=== PATIENT | male | born 1980 | race Caucasian/White ===

== ENCOUNTER 2016-09-17 03:12 | Emergency (ER) | payer OTHER ==
[~2016-09-17] VITALS: Ht 188 cm; Wt 79.5 kg
[~2016-09-17 03:12] MED LIST: CLIN-78 PO; NAPR500T PO; suboxone
[2016-09-17 03:23] VITALS: BP 166/88; PULSE 110; RESP 16; O2SAT 98
== END 2016-09-17 04:43 | disposition left against medical advice (07) ==
LOC: SED 03:12
DX: L02.415 Cutaneous abscess of right lower limb (principal)

== ENCOUNTER 2016-09-19 09:33 | Observation (INO) | payer OTHER ==
[~2016-09-19] VITALS: Ht 188 cm; Wt 76.6 kg
[2016-09-19 09:39] VITALS: BP 141/84; PULSE 93; RESP 18; O2SAT 99
--- NOTE | 2016-09-19 11:11 | ED.REPORT ---
HPI-Rash / Abscess Date of Service September 19, 2016 ED Provider: Augustina Estrada MD History of Present Illness: 35-year-old male here for abscess and saline and some right lower extremity. Symptoms started 1 week ago and then worsening. 2 days ago he went to the urgent care and had it lanced. He did not start his antibiotics, clindamycin and Bactrim, until the next day which was yesterday. He has taken a few doses of his antibiotics as scheduled and he is unsure if the erythema has gone down. He is able to walk on it now he believes the swelling has gone down a little unsure about the erythema. It is draining and he is expelling "cups" of purulent drainage. He also has an abscess behind his left knee, on his right foot dorsal aspect, on his left taylor. Cellulitis spreads from his right toes up to mid way up his right femur. He is a IV drug user, injected in places of abscess. Last use last night. Nursing Notes Stated Complaint: ABSCESS Chief Complaint: Skin Rash/Abscess Nursing Notes Reviewed: Yes Allergies: Coded Allergies: Penicillins (Verified Allergy, Intermediate, Rash, 09/19/16) A CHILD No Active Prescriptions or Reported Meds General Time Seen by MD: 10:57 Chief Complaint Abscess, Red area Hx Obtained From: Patient Arrived By: Walk-in Onset Occurred: 1 week ago Context of Onset: Other (drug use) Symptom Duration: Constant Location: : Lower extremity Severity: Current: Moderate Severity: Maximum: Severe Associated with: Reports Red streaking, Denies Abdominal pain, Denies Fever, Denies Headache Pertinent Negative: Pt denies other symptoms Recent Healthcare: Recent doctor visit Similar Sx Previous: Yes Past Medical History Past Medical History Notes: IV drug use, abscesses Past Medical History Opioid abuse Past Surgical History none reported. Smoking History Current Every Day Smoker Social History Alcohol Use: "Social" Drug Use: IV drugs, Meth, THC Other Social History: Good social support, Lives with children, Local resident Occupation lives with girlfriend, no work or school Ambulatory Status Independent Review of Systems Review of Systems Note: RLE swelling/erythema, unsure if erythema has gone down since starting abx Basic Review of Systems Endocrine: No cold intolerance, No heat intolerance, No weight gain, No weight loss Neurologic: NL mental status, No weakness, No numbness Psychiatric: Normal thought content Constitutional: Denies: Chills, Fatigue, Fever Respiratory: Denies: Dyspnea on exertion, Non-productive cough Cardiovascular: Denies: Chest pain GI: Denies: Abdominal pain, Nausea, Vomiting Musculoskeletal: Reports: Extremity pain, Extremity swelling Complete sys rev & neg: except as marked. Psychiatric: Denies: Agitation, Anxiety, Change mental status Physical Exam Initial Vital Signs Vital Signs (First) Date Time Temp Pulse Resp B/P Pulse Ox O2 Delivery O2 Flow Rate FiO2 09/19/16 09:39 36.1 93 18 141/84 99 Room Air Initial VS: Reviewed, Vital signs normal Head / Eyes: Atraumatic, Normocephalic, PERRL ENT: Mucous membranes moist, Conjunctiva normal, No scleral icterus Respiratory: Breath sounds normal, Clear to auscultation, No respiratory distress Cardiovascular: Regular rate & rhythm, Intact distal pulses Neurologic: Alert, Oriented, Nonfocal Psychiatric: Mood/affect normal, Behavior normal, Normal thought content General/Constitutional: Awake, Alert, Well appearing Rash / Lesion Notes: LLE: open and drainging abscess to posterior L knee, small amt of surrounding erythema. RLE: DOrsal foot with approx 4cm area of erythema/swelling/fluctuance Large area of surrounding erythema. Foot obviously swollen. Erythema extends up calf, splotchy, mainly posterior calf. Another previously lanced abscess Posterior R knee with minimal palpable induration but large area of surrounding erythema, very tender, draining purlent drainage. Surrounding erythema extensive extending to upper inner thigh. Rash / Lesion Location: Positive: Leg L, Leg R Cardiovascular: Heart rate NL, Regular rhythm, Heart sounds NL, Cap refill not delayed, Peripheral circulation NL Heart Sounds / Murmur: Positive: Systolic murmur present.. (III/) Lower Ext Edema: Positive: Pitting, Right 2+ Interpretation & Diagnostics Lab Results Interpretation Result Diagram: 09/19/16 1200 09/19/16 1200 Test 09/19/16 12:00 White Blood Count 15.9th/mm3 (3.8-10.1) Red Blood Count 4.18mil/mm3 (4.40-5.80) Hemoglobin 12.6g/dL (13.8-17.2) Hematocrit 35.4% (41.0-50.0) Mean Corpuscular Volume 84.7fL (81-100) Mean Corpuscular Hemoglobin 30.1pg (27.0-35.0) Mean Corpuscular Hemoglobin Concent 35.6% (32.0-37.0) Red Cell Distribution Width 12.2% (12.3-15.4) Platelet Count 488bil/L (150-400) Neutrophils (%) (Auto) 80% (40-74) Lymphocytes (%) (Auto) 14% (14-46) Monocytes (%) (Auto) 5% (4-12) Eosinophils (%) (Auto) 1% (0-5) Basophils (%) (Auto) 0% (0-3) Sodium Level 133mEq/L (134-144) Potassium Level 3.6mEq/L (3.5-5.2) Chloride Level 93mEq/L (97-108) Carbon Dioxide Level 24mmol/L (18-29) Blood Urea Nitrogen 13mg/dL (6-20) Creatinine 0.78mg/dL (0.76-1.27) Estimat Glomerular Filtration Rate 121mL/min (>59) Glucose Level 127mg/dL (60-99) Calcium Level 9.3mg/dL (8.5-10.1) Total Bilirubin 0.4mg/dL (0.0-1.2) Aspartate Amino Transf (AST/SGOT) 49U/L (0-50) Alanine Aminotransferase (ALT/SGPT) 31U/L (0-44) Alkaline Phosphatase 99U/L (25-150) Total Protein 7.7g/dL (6.4-8.4) Albumin 3.7g/dL (3.4-5.0) Re-Eval/Medical Decision Med Decision/Clinical Course records reviewed, culture taken but no results back. Pt does not want wound packed so he can express drainage. IT has been draining well. pt eating sandwich, comfortable 1406report to dr estrada, taking over pt, admit to hospital Patient examined and care assumed. 35-year-old IV drug user using 1-1/2-2 g of heroin daily along with methamphetamine. Recently developed an abscess to the right posterior calf was I&D at urgent care. He has started antibiotics is been on them for 24 hours now however he continues to have erythema extending up the medial and posterior aspect of his leg increasing edema of the right leg looks like he is developing a new abscess over the right dorsum of the foot. On physical exam he does have a 3/6 systolic ejection murmur he states that that was noted when he was in long term previously. He says he has never been diagnosed with endocarditis. He has however had fevers over the last few days. His right calf had been so tender he was having trouble walking this improved after the I&D and then him being able to express large amounts of purulent fluid last night. I am concerned that there is still more purulence that tracking down through the posterior part of the leg, I am also concerned about his immunocompromise status presence of the murmur and risks for endocarditis as well as life-threatening cellulitis. Reviewed all of these concerns with him at this point he is more than willing to stay in the hospital as recommended. We talked about his IV drug use and how to deal with that in the hospital. He has a court date on October 03 and is planning to continue using her [address] at which point he is hoping to get into inpatient care. In light of that, I told him we could provide him with enough narcotics so that he was not withdrawing, that he likely would still have some discomfort, and that if he was asking for additional narcotics the answer would be no. He was very amenable to this. He was given 20 mg of oxycodone in the ER to treat current symptoms. We discussed suboxone to treat his addiction vs lower doses of scheduled narcotic to prevent withdrawal. He is considering suboxone. Have asked Named Account Executive to have the in house CDP help with outpt follow up for suboxone/chemical dependency on discharge. Very sheldon discussion with need for medical compiance, no use in the hospital, and working with routine does of meds -no escalating doses and no additoinal prn doses. He was amenable to all of this He has had vancomycin IV will add ceftriaxone IV. He has had a couple of doses of clindamycin a couple doses of Septra. Cultures were done and we are looking for those results from the . blood cultures X3 done in the ER (has had clinda, septra, vanco prior to these). Consultation : Consulted With: Hospitalist Call Returned at: 16:25 Metalsmith: Will see patient Note: Will be admitted to hospitalist service. Dr Vega. Discharge & Departure Impression: Primary Impression: Abscess of left lower extremity Additional Impressions: Cellulitis of left foot Cellulitis and abscess of leg Opioid dependence Methamphetamine abuse Heart murmur Disposition: ADMITTED TO HOSPITAL Referrals: NOPCP (PCP) Lesly Easley September 19, 2016 11:11 Augustina Estrada MD September 19, 2016 14:15
[2016-09-19] MEDS ORDERED: TdaP Vaccine 0.5 mL Inj IM ONE (11:15)
[2016-09-19] MEDS ORDERED: Vancomycin Inj 1,000 MG in IV Premix 1 EACH IV ONE (11:15)
[2016-09-19] MEDS ORDERED: Vancomycin Inj 1,250 MG in 0.9% Sodium Chloride 250 ML IV ONE (11:35)
[2016-09-19 12:24] LABS: Mean Corpuscular Hemoglobin 30.1 pg (27.0-35.0); Mean Corpuscular Volume 84.7 fL (81-100); Platelet Count 488 bil/L (150-400)
[2016-09-19 13:20] LABS: BASOPHILS % (AUTO) 0 % (0-3); EOSINOPHILS % (AUTO) 1 % (0-5); MONOCYTES % (AUTO) 5 % (4-12); NEUTROPHILS % (AUTO) 80 % (40-74)
[2016-09-19] MEDS ORDERED: cefTRIAXone Inj 2,000 MG in Dextrose 5% Minibag Plus 50 ML IV ONE (14:10)
[2016-09-19] MEDS ORDERED: Alum-Mag Hydrox-Simeth 30 mL Suspension PO PRN (14:50)
[2016-09-19] MEDS ORDERED: Polyethylene Glycol (PEG) 17 Gm Powder PO PRN (14:50)
[2016-09-19] MEDS ORDERED: Ondansetron 2 mg/mL 2 mL Inj IVPUSH PRN (14:50)
[2016-09-19] MEDS ORDERED: PEDS CEFTRIAXONE IV SCH (14:55)
[2016-09-19] MEDS ORDERED: DEXTROSE 5% IV SCH (14:55)
--- NOTE | 2016-09-19 15:09 | DRSVH ---
PROCEDURE: US EXTREMITY SONOGRAM LIMITED ([id number]) INDICATIONS: cellulits, ? absecess TECHNIQUE: Real-time scanning was performed of the region of interest, with image documentation. COMPARISON: None. FINDINGS: No fluid collection in the area interest is present to suggest abscess. There is soft tissu e swelling. IMPRESSION: Soft tissue swelling. No fluid collection to suggest abscess. Dictated by: Darrell Cai M.D. on 09/19/2016 at 15:06 Approved by: Darrell Cai M.D. on 09/19/2016 at 15:07
--- NOTE | 2016-09-19 15:13 | PCM.HPMED ---
Subjective Date of Service September 19, 2016 Primary Provider: Admitting Physician: Primary Care Physician: Anderson Attending Physician: Chief Complaint: IV drug user with abscess failing outpatient treatment History of Present Illness: 35-year-old male with IV drug use and abscess failing clindamycin and Bactrim as outpatient spreading erythema up his legs. He has had no fevers or chills or night sweats. He has had abscesses before. One on the affected leg he drank himself on the right, wound is clean dry and intact and well-healed. He shows me another wound on his opposite leg the left leg that it appears there are 2 puncture wounds which he stated there was nothing when he went to the urgent care and then when he is driving to the hospital today suddenly his leg was wet and spelled a cup or more of fluid and relieved great deal of pressure. The primary problem though is his left foot where erythema was rising up the leg and there was another bump in his popliteal area along with only the dorsal aspect of his foot and erythema was spreading up and causing a great deal of pain. There was nothing to drain in any of these places and the ultrasound did not reveal anything but patient was rightly concerned that this was progressive and potentially could become life-threatening quickly. He is gotten antibiotics and the erythema and edema have improved since then. Review of Systems: Gen.: No fevers chills weight loss weight gain Eyes: no visual disturbances or blurring vision HEENT: No nose/throat drainage, no pain in ears or throat, no hearing loss Lymph: No lymph nodes noted Cardiac: No chest pain, orthopnea, PND, palpitations , pedal edema or dyspnea on exertion Pulmonary: no cough, wheezing or bringing up of sputum GI: No anorexia nausea vomiting blood or black in the stool : no dysuria hematuria urinary frequency or decrease in urine output Musculoskeletal: Joint swelling no joint pain no new muscle aches or back pain Neuro: No syncope, seizures no loss of consciousness no new focal weakness, numbness or tingling Psychiatric: New new anxiety insomnia or depression Endocrine: No new heat or cold intolerances polyuria or polydipsia Hematology: No lymphadenopathy or easy bleeding or bruising noted skin: No new rashes, stasis dermatitis Allergies Coded Allergies: Penicillins (Verified Allergy, Intermediate, Rash, 09/19/16) A CHILD Home Medications none PMH IV drug use, abscesses Opioid abuse Past Surgical History none reported. Smoking History- Current Every Day Smoker Social History Alcohol Use: "Social" Drug Use: IV drugs, Meth, THC He has local friends here at the bedside who seemed quite supportive. Patient has a family 5-year-old and 3-year-old in [place] and he wants to get clean for them. lives with girlfriend, no work or school Social History Hx Alcohol Use: No Hx Substance Use: Yes (Herion, meth and marijuana) Smoking Status: Current Every Day Smoker Exam Vital Signs Vital Sign - Last Date Time Temp Pulse Resp B/P Pulse Ox O2 Delivery O2 Flow Rate FiO2 09/19/16 09:39 36.1 93 18 141/84 99 Room Air Exam Gen.- A+ O 3 no apparent distress. Lying in the bed Eyes- open conjunctiva clear, pupils equal nonicteric Mouth- oral mucosa moist, no exudate ENT- ears normal, nose normal Neck- supple/trach midline CVS- RRR no murmur or gallop, or murmur was reportedly do not really hear one but I do have her a loud S1 snap Lungs- CTA GI- NABS/NT soft Musc- moving 4 no obvious deformity Neuro- cranial nerves II through XII intact to gross examination, nonfocal Skin- warm and dry, no rashes/lesions/wounds noted There are prince of the right leg delineating the extent of the erythema previously and the area of erythema has shrunken greatly from there. There is a bump on the dorsal aspect of the right foot as well as an area in the popliteal area both of them are about 3 cm in diameter and slightly raised. There is a bump in his left popliteal area there is also about 3 cm and slightly raised over there to what appeared to be puncture wounds drained purulent looking fluid. The left leg does not show any signs of overt erythema beyond the localized area in the popliteal region. He has bilateral sleeves of tattoos both arms Psych- pleasant and appropriate, Lab and Diagnostics Result Diagram: 09/19/16 1200 09/19/16 1200 Assessment & Plan 35-year-old male IV drug abuser coming in with cellulitis spreading up his leg. Reportedly he has an old heart murmur is not new. Clinically does not look septic at this moment. Cellulitis from IV drug use- patient has failed outpatient attempt and antibiotics Bactrim./clindamycin +/-I think he has only been on it for 2 days -Blood cultures ordered in the emergency room -Patient started on Rocephin/vancomycin in the emergency room. I am adding clindamycin to get better anaerobic coverage. Right leg pain-I have prescribed oxycodone 10 mg every 4 and Toradol. Opiate abuse- since I am not a licensed prescriber of Subutex cannot prescribe for withdrawal in the hospital. The patient understands this and is okay with it. -We will treat potential withdrawal with gabapentin, clonidine, methocarbamol, dicyclomine as needed. Tobacco abuse- recommend cessation and I am giving nicotine replacement Prophylaxis- DVT with SCDs/enoxaparin. GI not indicated Disposition- patient is full code from home independent living Nate Massey MD September 19, 2016 15:13 Prophylaxis- DVT with SCDs/enoxaparin. GI not indicated Disposition- patient is full code from home independent living Nate Massey MD September 19, 2016 15:13
[2016-09-19] MEDS ORDERED: Ketorolac 15 mg/mL Inj IVPUSH PRN (15:15)
[2016-09-19] MEDS ORDERED: Clindamycin Inj 900 MG in IV Premix 1 EACH IV SCH (15:30)
[2016-09-19] MEDS ORDERED: Buprenorphine 2 mg SL Tablet SL SCH (15:40)
[2016-09-19 16:26] VITALS: BP 132/72; PULSE 82; RESP 16; O2SAT 99
[2016-09-19 16:40] VITALS: BP 116/50; PULSE 84; RESP 20; O2SAT 100
[2016-09-19] MEDS: Clindamycin Inj 900 MG in IV Premix 1 EACH IV SCH (18:00)
[2016-09-19] MEDS ORDERED: Vancomycin Inj 1,000 MG in 0.9% Sodium Chloride 250 ML IV SCH (20:00)
[2016-09-19 20:20] VITALS: BP 138/64; PULSE 98; RESP 18; O2SAT 99
[2016-09-19] MEDS: Vancomycin Inj 1,000 MG in IV Premix 1 EACH IV SCH (20:24)
[2016-09-19] MEDS: cloNIDine 0.1 mg Tablet PO SCH (20:26)
[2016-09-19] MEDS ORDERED: Vancomycin Inj 1,000 MG in IV Premix 1 EACH IV SCH (20:30)
[2016-09-20 00:32] VITALS: BP 122/70; PULSE 70; RESP 18; O2SAT 98
[2016-09-20] MEDS: Clindamycin Inj 900 MG in IV Premix 1 EACH IV SCH ×2 (02:28→10:19)
[2016-09-20] MEDS: Vancomycin Inj 1,000 MG in IV Premix 1 EACH IV SCH ×3 (03:14→13:32)
[2016-09-20 05:17] VITALS: BP 104/63; PULSE 72; RESP 18; O2SAT 96
[2016-09-20 07:01] LABS: BASOPHILS % (AUTO) 0.4 % (0-3); EOSINOPHILS % (AUTO) 3.1 % (0-5); MONOCYTES % (AUTO) 9.9 % (4-12); Mean Corpuscular Hemoglobin 30.2 pg (27.0-35.0); Mean Corpuscular Volume 88.1 fL (81-100); NEUTROPHILS % (AUTO) 62.8 % (40-74); Platelet Count 494 bil/L (150-400)
[2016-09-20] MEDS: cloNIDine 0.1 mg Tablet PO SCH (07:47)
[2016-09-20] MEDS ORDERED: Vancomycin Dose per Pharmacist XX SCH (08:30)
[2016-09-20] MEDS ORDERED: cefTRIAXone 2,000 mg/D5W 50 mL IV Minibag Plus IV SCH ×4 (08:30→15:00)
[2016-09-20 08:33] VITALS: BP 111/63; PULSE 77; RESP 18; O2SAT 96
[2016-09-20] MEDS ORDERED: Vancomycin Serum Trough XX ONE (11:30)
--- NOTE | 2016-09-20 13:06 | PCM.PHAPRO ---
Progress Vancomycin Management: -trough level returned at 9.6 on current Vancomycin regimen of 1gm iv [id number] -goal is 10-15, will continue for now Rosana [facility]fo [facility] September 20, 2016 13:06
[2016-09-20 13:33] VITALS: BP 123/70; PULSE 76; RESP 16; O2SAT 98
--- NOTE | 2016-09-20 14:43 | CONS ---
[address] [address] CONSULTATION REPORT PATIENT: JENNIFER DC : 1980 MR#: [id number] ADMIT: 09/19/2016 JOB ID: [id number] DATE OF SERVICE: 09/20/2016 INFECTIOUS DISEASE CONSULTATION: I thank Dr. Massey for this timely consult. REASON FOR CONSULTATION: Multiple left leg abscesses secondary to injection drug use. HISTORY OF PRESENT ILLNESS: The patient is a 35-year-old IV heroin user who has been having increasing difficulty finding adequate veins for injection. Recently he has experimented with sites in his lower extremity including the popliteal space as well as the dorsal foot. Unfortunately, the patient over the past week or so has developed tender, swollen, erythematous areas behind the left leg in the popliteal space as well as at the top of the dorsal left foot junction to the ankle. These have been increasingly painful and led him to seek outpatient evaluation two days ago where limited I and D of the popliteal abscess was conducted and appropriate cultures obtained. He was then started on a combination of Bactrim and clindamycin but did fail to improve, and for that reason, sought evaluation and was admitted. Despite these growing abscesses behind his leg and at the top of his foot, he has not had much in the way of systemic symptoms and denies fevers, chills, sweats, sore throat, cough or GI symptoms. He has noted that since she was admitted to the hospital and started on IV antibiotics, which currently include ceftriaxone, vanco and clinda, that he has improved considerably. At this point, he is leaning towards getting out of the hospital sooner rather than later. ID consultation is requested regarding optimal antibiotic management. PAST MEDICAL HISTORY: None. 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 but they are currently having some domestic discord, and for that reason, he headed [place] for a short stay with friends. He is a tobacco chewer but not smoker. Does not drink alcohol and does inject heroin. Also uses methamphetamine and marijuana to some degree. FAMILY HISTORY: Negative for tuberculosis. REVIEW OF SYSTEMS: No significant headache, visual change, sore throat, cough, chest pain, nausea, vomiting, diarrhea or dysuria. Despite the abscesses behind his left leg and over his left dorsal foot, he can still walk though with some pain and is otherwise functional. REVIEW OF SYSTEMS: Otherwise negative. PHYSICAL EXAMINATION: Reveals afebrile since admission gentleman now 36.6, pulse 77, respiratory rate 18, blood pressure 111/63, saturating 96% on room air. He is in no acute distress. He is heavily tattooed. Examination of the head, no trauma. Eyes without conjunctival or scleral abnormalities. Oral cavity: No thrush or hairy leukoplakia. Neck: Supple. No adenopathy. Lungs clear. Cardiac tones: Regular rate and rhythm without murmur. Abdomen: Soft, nontender. No hepatosplenomegaly or ascites. Does not have a Alejo catheter. He does not have evidence of synovitis or inflammation of any joint. Examination of the left popliteal space shows about a 6 x 4 area of intense erythema with surrounding induration. He also has another similar abscess in his right popliteal space, the one that was incised and drained on his left. The other one is on the right which drained spontaneously. Over the dorsum of the right foot, there is about a 3 x 2 erythematous tender swollen area as well. He does have full range of motion of his foot, and for that matter, his knee in spite of these inflammatory lesions in both popliteal spaces and over his right dorsal foot. Neurologically, he is intact. Labs include white count 16 yesterday when he was admitted, now 10. Normal differential. Creatinine 0.86. LFTs completely normal. Albumin only 3, though interestingly. Procalcitonin 0.53. Toxicology: Vanco 9.6. Hep C and HIV pending. Micro studies included negative MRSA swab here and negative blood cultures x10 bottles. IMAGING: Imaging includes an ultrasound of the left lower extremity which shows soft tissue swelling but no apparent abscess. A culture done of the left popliteal space at the time of incision and drainage two days ago yielded a MRSA which is susceptible to clindamycin, linezolid, tetracycline, sulfa and vanco. IMPRESSION: This is a young gentleman with an intravenous heroin habit who has developed multiple soft tissue abscesses secondary to injecting into the popliteal space in the feet. This seems to be a purely MRSA event and the patient is not bacteremic nor is he systemically toxic. There are numerous oral options here which would likely work and my preferred option would be Zyvox 600 mg p.o. b.i.d. for 10 days. There are no drug interaction issues as it does not take any meds at home. If this is not an economic possibility (though the rincon of linezolid has fallen dramatically since it became generic last year) then I would use either clindamycin 450 4x daily orally or Bactrim 2 double-strength tablets p.o. b.i.d. Either of these other regimen should probably be taken for a full two weeks. RECOMMENDATIONS: 1. Okay to discharge the patient on Zyvox 600 b.i.d. for 10 days or clinda 450 4x daily for two weeks or Septra 2 double strength tablets p.o. b.i.d. for two weeks. 2. The patient should followup with his primary care doctor or other competent Health Professional in [facility] as he will be returning there before too long. Thank you very much this consult. ID will go ahead and sign off at this time.
--- NOTE | 2016-09-20 15:26 | PCM.DIMED ---
Discharge Instructions Date of Service September 20, 2016 Dates of Hospitalization September 19, 2016 at 16:15 Discharge Diagnosis Discharge Diagnosis Cellulitis, abscesses Diet Discharge Diet: No restrictions Activity Discharge Activity: No restrictions Call your provider Call your provider for: Fever or Chills, Shortness of breath Patient Instructions Patient Instructions Finish this course of antibiotics, seek treatment if he developed fevers/chills , shortness of breath blood culture still could come back positive but so far have not. This would mandate a longer course of IV antibiotics. Follow-up plan Try to establish primary care and follow-up in remaining drug-free. Nate Serrano MD September 20, 2016 15:26
[2016-09-20] MEDS ORDERED: LINE600T2 PO (15:28)
--- NOTE | 2016-09-20 17:17 | PCM.DC.MED ---
Discharge Summary Date of Service September 20, 2016 Dates of Hospitalization Date of Hospital Admission September 19, 2016 at 16:15 Date of Discharge: September 20, 2016 Providers: Admitting Physician: Jose Massey MD Primary Care Physician: Nopshekhar Attending Physician: Jose Massey MD Diagnosis at Time of Discharge Diagnosis at Time of Discharge Cellulitis, abscesses Consultations Cooper, infectious disease Procedures XRay, CTs & MRIs Reported ultrasound of legs that showed no abscesses 09/19 and ED Brief History 35-year-old male with IV drug use and abscess failing clindamycin and Bactrim as outpatient spreading erythema up his legs. He has had no fevers or chills or night sweats. He has had abscesses before. One on the affected leg he drank himself on the right, wound is clean dry and intact and well-healed. He shows me another wound on his opposite leg the left leg that it appears there are 2 puncture wounds which he stated there was nothing when he went to the urgent care and then when he is driving to the hospital today suddenly his leg was wet and spelled a cup or more of fluid and relieved great deal of pressure. The primary problem though is his left foot where erythema was rising up the leg and there was another bump in his popliteal area along with only the dorsal aspect of his foot and erythema was spreading up and causing a great deal of pain. There was nothing to drain in any of these places and the ultrasound did not reveal anything but patient was rightly concerned that this was progressive and potentially could become life-threatening quickly. He is gotten antibiotics and the erythema and edema have improved since then. Hospital Course 35-year-old male IV drug abuser coming in with cellulitis spreading up his leg. Reportedly he has an old heart murmur is not new. Clinically does not look septic at this moment. 09/20 the erythema on the leg has all but resolved. He has the couple of sites were the specific abscesses are small and improved greatly in the right dorsum of the foot and in the popliteal area. Patient was stressed and anxious to go when I came to see him pulled this Pap like to show me he had been seen by infectious disease earlier in the day. Their recommendation was Zyvox and a prescription was given I believe for 7-10 days. Patient remained afebrile his white count resolved and was discharged in stable and improved condition. Cellulitis from IV drug use- patient has failed outpatient attempt and antibiotics Bactrim./clindamycin +/-I think he has only been on it for 2 days -Blood cultures ordered in the emergency room -Patient started on Rocephin/vancomycin in the emergency room. I am adding clindamycin to get better anaerobic coverage. -Discharged on Zyvox as per Dr. Cooper thank you infectious disease recommendations Right leg pain-I have prescribed oxycodone 10 mg every 4 and Toradol. Opiate abuse- since I am not a licensed prescriber of Subutex cannot prescribe for withdrawal in the hospital. The patient understands this and is okay with it. -We will treat potential withdrawal with gabapentin, clonidine, methocarbamol, dicyclomine as needed. Tobacco abuse- recommend cessation and I am giving nicotine replacement Prophylaxis- DVT with SCDs/enoxaparin. GI not indicated Disposition- patient is full code from home independent living Exam Vital Signs (Last) Date Time Temp Pulse Resp B/P Pulse Ox O2 Delivery O2 Flow Rate FiO2 09/20/16 13:33 36.8 76 16 123/70 98 Room Air Exam Gen.- A+ O 3 no apparent distress. Sitting up fully clothed when I came to see him Eyes- open conjunctiva clear, pupils equal nonicteric ENT- ears normal, nose normal, hearing intact Neck- supple/trach midline CVS-rate normal Lungs-regular no accessory muscles no evidence of respiratory distress GI-flat Musc- moving 4 no obvious deformity Neuro- cranial nerves II through XII intact to gross examination, nonfocal Skin- warm and dry, no rashes/lesions/wounds noted A pulled up his family to show me his right leg and erythema is virtually gone scrubbed off most of the permanent marker marking the areas of erythema that were delineated yesterday. He has bilateral sleeves of tattoos both arms Psych- pleasant and appropriate, Test 09/19/16 16:26 09/20/16 06:23 09/20/16 08:30 09/20/16 11:25 Hold Purple Top Tube Received (Received) Hold Blue Top Tube Received (Received) Hold Red Top Tube Received (Received) White Blood Count 10.0th/mm3 (3.8-10.1) Red Blood Count 3.77mil/mm3 (4.40-5.80) Hemoglobin 11.4g/dL (13.8-17.2) Hematocrit 33.2% (41.0-50.0) Mean Corpuscular Volume 88.1fL (81-100) Mean Corpuscular Hemoglobin 30.2pg (27.0-35.0) Mean Corpuscular Hemoglobin Concent 34.3% (32.0-37.0) Red Cell Distribution Width 12.2% (12.3-15.4) Platelet Count 494bil/L (150-400) Neutrophils (%) (Auto) 62.8% (40-74) Lymphocytes (%) (Auto) 23.4% (14-46) Monocytes (%) (Auto) 9.9% (4-12) Eosinophils (%) (Auto) 3.1% (0-5) Basophils (%) (Auto) 0.4% (0-3) Sodium Level 135mEq/L (134-144) Potassium Level 3.8mEq/L (3.5-5.2) Chloride Level 98mEq/L (97-108) Carbon Dioxide Level 25mmol/L (18-29) Blood Urea Nitrogen 9mg/dL (6-20) Creatinine 0.86mg/dL (0.76-1.27) Estimat Glomerular Filtration Rate 108mL/min (>59) Glucose Level 126mg/dL (60-99) Calcium Level 8.8mg/dL (8.5-10.1) Total Bilirubin 0.2mg/dL (0.0-1.2) Aspartate Amino Transf (AST/SGOT) 28U/L (0-50) Alanine Aminotransferase (ALT/SGPT) 23U/L (0-44) Alkaline Phosphatase 83U/L (25-150) Total Protein 6.0g/dL (6.4-8.4) Albumin 3.0g/dL (3.4-5.0) Procalcitonin 0.53ng/mL (0.00-0.08) Lactic Acid Level 1.3mmol/L (0.4-2.0) Test 09/20/16 11:30 Vancomycin Level Trough 9.6mcg/mL Discharge Medications Discharge Medications Linezolid (Zyvox) 600 Mg Tablet 600 MG PO BID Prescribed by: JOSE MASSEY MD Followup Plan Disposition: Home/independent living Follow-up plan Try to establish primary care and follow-up in remaining drug-free. Good luck Discharge Diet: No restrictions Discharge Activity: No restrictions Patient Instructions Finish this course of antibiotics, seek treatment if he developed fevers/chills , shortness of breath blood culture still could come back positive but so far have not. This would mandate a longer course of IV antibiotics. Time spent Less than 30 minutes Jose Massey MD September 20, 2016 17:17
[2016-09-21] MEDS ORDERED: BUPR8TAB2 SL (14:07)
== END 2016-09-20 15:53 | disposition home or self-care (01) ==
LOC: SED 09:33 → MOC 16:15 → INTOOBSV 16:15
PROVIDERS: ADMIT Hospitalist; ATTEND Hospitalist
DX: L03.116 Cellulitis of left lower limb (principal); L03.115 Cellulitis of right lower limb; F11.10 Opioid abuse, uncomplicated; F15.10 Other stimulant abuse, uncomplicated; F12.10 Cannabis abuse, uncomplicated; F17.210 Nicotine dependence, cigarettes, uncomplicated
CPT/HCPCS: 36415; 76882; 80053; 80202; 83605; 84145; 85025; 87040; 87641; 90471; 90715; 90791; 96365; 96367; 99285; G0433; G0472; J0696; J3370; J7050

== ENCOUNTER 2016-09-21 12:59 | Emergency (ER) | payer OTHER ==
[~2016-09-21] VITALS: Ht 188 cm; Wt 0.9 kg
[~2016-09-21 12:59] MED LIST changes: -CLIN-78 PO; +LINE600T2 PO; -NAPR500T PO; -suboxone
[2016-09-21 13:00] VITALS: BP 141/80; PULSE 96; RESP 21; O2SAT 97
--- NOTE | 2016-09-21 13:23 | ED.REPORT ---
HPI-General Illness Date of Service September 21, 2016 ED Provider: Andrae Hadley MD 35 year old male with a history of IV methamphetamine and heroin abuse presents to the ER for assistance with recovery from methamphetamine and heroin abuse, requesting a prescription for Suboxone. He denies any significant underlying medical conditions, fever, chills, nausea, vomiting, and any other current illness. Patient does not voice any further medical complaints at this time. Nursing Notes Stated Complaint: WANTS TO SEE SUBOXONE Chief Complaint: General Complaint Nursing Notes Reviewed: Yes Allergies: Coded Allergies: Penicillins (Verified Allergy, Intermediate, Rash, 09/21/16) A CHILD Scheduled Buprenorphine SL (Buprenorphine SL) 8 Mg Tab.subl 16 MG SL DAILY Linezolid (Zyvox) 600 Mg Tablet 600 MG PO BID General Time Seen by MD: 13:22 Chief Complaint Other (Heroin Abuse) Hx Obtained From: Patient Arrived By: Walk-in Sudden in Onset?: No Pertinent Negative: Pt denies other symptoms Context Related History: Reports Drug use/abuse suspected Past Medical History Past Medical History Notes: IV drug use, abscesses Past Medical History Opioid abuse Past Surgical History none reported. Smoking History Current Every Day Smoker Social History Alcohol Use: "Social" Drug Use: IV drugs (Heroin), Meth, THC Other Social History: Good social support, Lives with children, Local resident Occupation lives with girlfriend, no work or school Ambulatory Status Independent Review of Systems Full Review of Systems Constitutional: Denies: Chills, Fever Respiratory: Denies: Non-productive cough, Shortness of breath Cardiovascular: Denies: Chest pain GI: Denies: Abdominal pain, Constipation, Diarrhea, Nausea, Vomiting Complete sys rev & neg: except as marked. Physical Exam Vital Signs Vital Signs Date Time Temp Pulse Resp B/P Pulse Ox O2 Delivery O2 Flow Rate FiO2 09/21/16 13:00 36.3 96 21 141/80 97 Room Air Initial VS: Reviewed General/Constitutional: Well-developed, Well-nourished Head / Eyes: Atraumatic, Normocephalic, PERRL Neck: Supple, Non-tender, Full range of motion Skin: Warm, Dry, No cyanosis Neurologic: Alert, Oriented, Nonfocal Psychiatric: Mood/affect normal, Behavior normal, Normal thought content Upper Extremities Upper Extremity / MS: Inspection NL, No swelling, Non-tender, No erythema, No deformity, Neurologic intact, Vascular intact, No clubbing/cyanosis Lower Extremity / Pelvis / MS: Inspection NL, No swelling, Non-tender, No erythema, No deformity, Neurologic intact, Vascular intact, No edema Re-Eval/Medical Decision Time of Eval: 13:27 Re-Evaluation/Progress Note: Discussed plan to discharge with plan for close follow-up at [facility]. Patient is amenable to the plan. Return precautions given. All other questions addressed. Counseled Regarding: Diagnosis, Need for follow-up, When/why to return to ED Discharge & Departure Primary Impression: Opiate abuse, continuous Disposition: Home Discharge Condition All VS Reviewed: Yes Condition: Stable Patient Instructions: Buprenorphine/Naloxone (Into the mouth) Additional Instructions: I have made you an appointment at [facility] for tomorrow at 2:00 p.m. Make sure to arrive early and bring photo ID. Do not take the Suboxone until you are Clinical Opiate Withdrawal Scale (COWS) is greater than 20 or it has been at least 24 hours since your last heroin/ narcotic/opioid use. Referrals: [facility] (PCP) [facility] Dia Attestation Portions of this note were transcribed by Don Adams. I, Dr. Hadley, personally performed the history, physical exam and medical decision-making; I reviewed and confirmed the accuracy of the information in the transcribed note. Signed by: Dia Benavidez, 09/21/2016 at 14:03 copies to: [facility] ; Andrae Serna MD September 21, 2016 13:23 DON ADAMS September 21, 2016 13:45
[2016-09-21] MEDS ORDERED: BUPR8TAB2 SL (14:07)
== END 2016-09-21 14:23 | disposition home or self-care (01) ==
LOC: SED 12:59
DX: F11.10 Opioid abuse, uncomplicated (principal); F17.200 Nicotine dependence, unspecified, uncomplicated; Z88.0 Allergy status to penicillin

== ENCOUNTER 2016-11-04 18:06 | Emergency (ER) | payer OTHER ==
[~2016-11-04] VITALS: Ht 188 cm; Wt 86.4 kg
[~2016-11-04 18:06] MED LIST changes: +BUPR8TAB2 SL
[2016-11-04 18:12] VITALS: BP 127/72; PULSE 107; RESP 18; O2SAT 98
--- NOTE | 2016-11-04 18:51 | ED.REPORT ---
HPI-Rash / Abscess Date of Service Nov 04, 2016 ED Provider: Humble Chacon DO Patient is a 35 year old male with a history of IV heroin use, abscesses and Hep C who presents to the ED due to an abscess on his left taylor onset 3 days ago. Associated symptoms include surrounding erythema. He denies fever. The patient reports that he has been shooting up a lot lately and does not normally clean the area beforehand. He states that he is going to get treatment next week to quit using. Nursing Notes Stated Complaint: ABSCESS ON LEFT CALF Chief Complaint: Skin Rash/Abscess Nursing Notes Reviewed: Yes Allergies: Coded Allergies: Penicillins (Verified Allergy, Intermediate, Rash, 11/04/16) A CHILD Scheduled Buprenorphine SL (Buprenorphine SL) 8 Mg Tab.subl 16 MG SL DAILY Linezolid (Zyvox) 600 Mg Tablet 600 MG PO BID General Time Seen by MD: 18:51 Chief Complaint Abscess Hx Obtained From: Patient Arrived By: Walk-in Onset Occurred: 3 days ago Symptom Duration: Since onset Location: : Lower extremity Quality: Painful Severity: Current: Moderate Recent Healthcare: No recent hospitalization, Recent doctor visit Similar Sx Previous: Yes Past Medical History Past Medical History Notes: IV drug use, abscesses Past Medical History Opioid abuse Past Surgical History none reported. Smoking History Current Every Day Smoker Social History Alcohol Use: "Social" Drug Use: IV drugs, Meth, THC Other Social History: Lives with children, Local resident Occupation lives with girlfriend, no work or school Ambulatory Status Independent Review of Systems Constitutional: Denies: Chills, Fever Respiratory: Denies: Non-productive cough, Shortness of breath Musculoskeletal: Reports: Extremity pain (left taylor) Skin: Reports Swelling (left taylor), Denies Bruising, Denies Itching, Denies Rash Complete sys rev & neg: except as marked. Physical Exam Initial Vital Signs Vital Signs (First) Date Time Temp Pulse Resp B/P Pulse Ox O2 Delivery O2 Flow Rate FiO2 11/04/16 18:12 36.5 107 18 127/72 98 Room Air Initial VS: Reviewed General/Constitutional: Awake, Alert, No acute distress Skin: Warm, Dry 2inch diameter abscess on the left taylor 10inch x 5inch surrounding cellulitis Head / Eyes: Atraumatic, Normocephalic, PERRL, EOMI Respiratory / Chest: Atraumatic, Breath sounds NL, Breath sounds = bilat, No respiratory distress Cardiovascular: Heart rate NL, Regular rhythm, Heart sounds NL Lower Extremity / Pelvis / MS: Full range of motion, Neurologic intact, Vascular intact Psychiatric: Affect NL, Mood NL Procedures Incision & Drainage Abscess Time: 19:56 Procedure Performed by: ED physician Consent / Setup / Site Prep: Consent from patient, Time-out performed, Hand hygiene observed Skin Preparation Agent: Betadine Local Anesthesia: Lidocaine 1% Incised Abscess with Scalpel: #10 Pus Drained: Medium (5cc of brown pus) Post-Procedure / Complications: Culture obtained, Dressing applied, Condition improved, Tolerated procedure well, Patient stable Re-Eval/Medical Decision Re-Evaluation/Progress #1: Time of Eval: 19:25 Re-Evaluation/Progress Note: Patient denied incision and drainage of abscess at this time. He requests antibiotics with plan to return to the ED tomorrow if the abscess has not improved. Re-Evaluation/Progress #2: Time of Eval: 19:55 Re-Evaluation/Progress Note: Aspirated the abscess. Re-Evaluation/Progress #3: Time of Eval: 20:17 Re-Evaluation/Progress Note: The patient still refuses to have the abscess drained. Discussed plan for follow up and discharge. Patient understands and agrees to the plan. All questions were addressed. Counseled Regarding: Diagnosis, Need for follow-up, When/why to return to ED Discharge & Departure Impression: Primary Impression: Abscess Additional Impression: Cellulitis Site of cellulitis: extremity Site of cellulitis of extremity: lower extremity Laterality: left Qualified Code: L03.116 - Cellulitis of left lower limb Disposition: Home Discharge Condition All VS Reviewed: Yes Condition: Stable Patient Instructions: Abscess (ED), Cellulitis (ED) Additional Instructions: You denied having the abscess drained here at the ED today. I think that you will need to have the abscess drained and opened more. Elevate your leg. You should return the emergency department for a wound check in [address], as you received pain medication while at the emergency department. Take the antibiotics, Keflex 4x for 7 days. Take Bactrim 2x a day for 7 days. You can take 1-2 Percocet every 6 hours as needed for pain. Do not combine this with heroin/opiates. This is a lethal combination. Do not drink alcohol or drive while on the pain medication. Do not combine with Acetaminophen. Return to the emergency department sooner, if you change your mind about having the abscess drained or the redness continues to spread. You can also follow up with the referred surgical clinic to have the abscess drained there. Referrals: [facility] Scribe Attestation Portions of this note were transcribed by Sandhya Gerber. I, Dr. Chacon personally performed the history, physical exam and medical decision-making; I reviewed and confirmed the accuracy of the information in the transcribed note. Signed by: Dia Ramon, 11/04/16 and 1940 copies to: [facility] Humble Chacon DO Nov 04, 2016 18:51 Lizett Gerber Nov 04, 2016 19:39
[2016-11-04] MEDS ORDERED: oxyCODONE-Acetamin 5-325 mg Tablet PO ONE (19:30)
[2016-11-04] MEDS ORDERED: Trimethoprim-Sulfa 160 mg-800 mg Tablet PO ONE (19:30)
[2016-11-04] MEDS ORDERED: _oxyCODONE/APAP 5-325 mg Tablet PO PRN (20:25)
[2016-11-04] MEDS ORDERED: _Cephalexin 500 mg Capsule PO SCH (20:30)
[2016-11-04] MEDS ORDERED: _Trimethoprim-Sulfa 160/800 mg Tablet PO SCH (20:30)
[2016-11-04 21:24] VITALS: BP 129/75; PULSE 86; RESP 18; O2SAT 100
== END 2016-11-04 21:25 | disposition home or self-care (01) ==
LOC: SED 18:06
DX: L02.416 Cutaneous abscess of left lower limb (principal); L03.116 Cellulitis of left lower limb; F11.10 Opioid abuse, uncomplicated; F17.200 Nicotine dependence, unspecified, uncomplicated; Z88.0 Allergy status to penicillin